=== PATIENT | male | born 1980 | race Caucasian/White ===

== ENCOUNTER 2020-09-22 22:27 | Emergency (ER) | payer OTHER ==
[~2020-09-22] VITALS: Ht 182.9 cm; Wt 131.1 kg
[2020-09-22] MEDS ORDERED: ZOLOFT20 MG/1 ML PO (22:47)
[2020-09-22] MEDS ORDERED: ALL DAY ALL1 MG/1 ML PO (22:48)
[2020-09-22] MEDS ORDERED: THIORIDAZINE HC50 M2 PO (22:49)
[2020-09-22 23:34] VITALS: BP 141/70
== END 2020-09-22 23:35 | disposition home or self-care (01) ==
LOC: M.ERS 22:27
DX: S61.210A Laceration without foreign body of right index finger without damage to nail, initial encounter (principal); Z79.899 Other long term (current) drug therapy; W45.8XXA Other foreign body or object entering through skin, initial encounter; Y93.89 Activity, other specified; Y92.89 Other specified places as the place of occurrence of the external cause; Y99.8 Other external cause status